=== PATIENT | female | born 1970 | race African-American/Black ===

== ENCOUNTER 2016-11-09 16:13 | Emergency (ER) | payer MEDICAID ==
[~2016-11-09] VITALS: Ht 167.6 cm; Wt 66.0 kg
[~2016-11-09 16:13] MED LIST: DILANTIN
[2016-11-09] MEDS ORDERED: SODIUM CHLORIDE 0.9% 1,000 ML IV ONE (17:30)
[2016-11-09] MEDS ORDERED: PHENYTOIN SODIUM EXTENDED 100MG CAPSULE PO ONE (18:00)
[2016-11-09 18:23] VITALS: BP 121/69
[2016-11-09] MEDS ORDERED: ACETAMINOPHEN 325MG TABLET PO ONE (18:30)
== END 2016-11-09 18:29 | disposition home or self-care (01) ==
LOC: ER 16:41
DX: G40.909 Epilepsy, unspecified, not intractable, without status epilepticus (principal); S00.12XA Contusion of left eyelid and periocular area, initial encounter; S00.11XA Contusion of right eyelid and periocular area, initial encounter; F17.210 Nicotine dependence, cigarettes, uncomplicated; F20.9 Schizophrenia, unspecified; F31.9 Bipolar disorder, unspecified; Z87.828 Personal history of other (healed) physical injury and trauma; X58.XXXA Exposure to other specified factors, initial encounter; Y93.89 Activity, other specified; Y92.018 Other place in single-family (private) house as the place of occurrence of the external cause
CPT/HCPCS: 36415; 80185; 99283; J7030; Z7610

== ENCOUNTER 2017-04-06 14:04 | Emergency (ER) | payer MEDICAID ==
[~2017-04-06] VITALS: Ht 167.6 cm; Wt 61.0 kg
[2017-04-06] MEDS ORDERED: SODIUM CHLORIDE 0.9% 1,000 ML IV ONE (14:29)
[2017-04-06] MEDS ORDERED: IBUPROFEN 600MG TABLET PO ONE (14:45)
[2017-04-06 15:24] LABS: BASOPHILS % 0.5 % (0.0-2.0); EOSINOPHILS % 0.2 % (0.0-5.0); HEMATOCRIT. 38.2 % (36.0-48.0); HEMOGLOBIN. 12.8 g/dL (12.0-16.0); LYMPHOCYTES % 13.2 % (20.0-50.0); MEAN CORPUSCULAR HEMOGLOBIN 27.9 pg (28.0-32.0); MEAN CORPUSCULAR VOLUME 83.6 fL (81.0-99.0); MEAN PLATELET VOLUME 9.4 fl (7.4-10.4); MONOCYTES % 6.3 % (2.0-8.0); NEUTROPHILS % 79.8 % (40.0-76.0); PLATELET 215 x1000/uL (130-400); RED BLOOD CELL COUNT 4.57 mill/uL (4.2-5.4); RED CELL DISTRIBUTION WIDTH 14.6 % (11.6-14.6)
[2017-04-06 15:26] LABS: CHLORIDE 101 mEq/L (98-107)
[2017-04-06 15:35] LABS: CARBON DIOXIDE 25 mEq/L (21-32)
[2017-04-06 15:44] LABS: HCG SCREEN NEGATIVE
[2017-04-06] MEDS ORDERED: PHENYTOIN SODIUM EXTENDED 100MG CAPSULE PO ONE (16:30)
[2017-04-06] MEDS ORDERED: POTASSIUM CHLORIDE 20MEQ TABLET SR PO ONE (16:30)
[2017-04-06] MEDS ORDERED: LORAZEPAM 2MG/ML CPJ IM ONE (17:00)
[2017-04-06] MEDS ORDERED: LORAZEPAM 1MG TABLET PO ONE (17:15)
[2017-04-06 19:03] VITALS: BP 128/77
== END 2017-04-06 19:06 | disposition home or self-care (01) ==
LOC: ER 14:17
DX: R56.9 Unspecified convulsions (principal); E87.6 Hypokalemia; R51 Headache
CPT/HCPCS: 36415; 70450; 80053; 80185; 82962; 84703; 85025; 99285; J2060; Z7610; J7030

== ENCOUNTER 2018-01-02 12:06 | Emergency (ER) | payer MEDICAID ==
[~2018-01-02] VITALS: Ht 162.6 cm; Wt 59.0 kg
[2018-01-02] MEDS ORDERED: LEVETIRACETAM 500MG TABLET PO ONE (13:15)
[2018-01-02 13:36] VITALS: BP 129/93
== END 2018-01-02 14:31 | disposition left against medical advice (07) ==
LOC: ER 13:02
DX: G40.909 Epilepsy, unspecified, not intractable, without status epilepticus (principal); G93.49 Other encephalopathy; Z91.19 Patient's noncompliance with other medical treatment and regimen; F10.10 Alcohol abuse, uncomplicated; Y90.9 Presence of alcohol in blood, level not specified; R03.0 Elevated blood-pressure reading, without diagnosis of hypertension
CPT/HCPCS: 93005; 99283